=== PATIENT | male | born 1990 ===

== ENCOUNTER 2020-12-08 11:06 | Emergency (ER) | payer SELFPAY ==
[2020-12-08 11:08] VITALS: BP 148/98; PULSE 103; RESP 14; TEMP 37; O2SAT 95
--- NOTE | 2020-12-08 11:16 | W.ED.GENAD ---
Discharge Plan Disposition Patient Disposition: HOME Condition: Stable Discharge Details Clinical Impression: Anxiety Primary Care Provider: [facility] Provider: Jazzy Cárdenas Home Meds and New Rx's Prescriptions: No Action No Known Home Meds RF: 0 Discharge Instructions Instructions: Anxiety (ED) Additional Instructions: Your exam and reevaluation are reassuring here today. If you develop any thoughts of self-harm, harming others or other new/worsening symptoms please seek care urgently once again. Otherwise, please follow-up with primary care when she returns home within the next 1 to 2 weeks. Discharge Data Discharge Date/Time-TO BE ENTERED AT DEPARTURE: 12/08/20 17:20 Medical Decision Making <ED Blandon - Last Filed: 12/09/20 08:21> This is a 30-year-old gentleman, we have no previous medical records, who denies any significant past medical history. Presents via EMS accompanied by [facility] police for evaluation, acting oddly. Patient admits to alcohol use last night and mushrooms roughly 1 week ago. Admits to freaking out earlier today, nearly homeless, having been kicked out of the [place] in. He denies any suicidal or homicidal thoughts. Clinically he is afebrile, no signs of infection or meningitis. No obvious trauma. Will obtain laboratory values for a medical screening examination. Will attempt to obtain any potential collateral information. If able to medically clear will then contact mental health for evaluation. CPSO, behavioral plan, and mental health consultation all ordered. Patient given a nicotine patch. Laboratory values do not reveal any obvious emergent process that would inhibit a mental health evaluation. Tox screen positive for THC, alcohol less than 3. I was able to speak with López from mental health who evaluated the patient, please see his note. He does not feel as though the patient is suicidal, homicidal, needs involuntary placement. Patient does not want to seek a voluntary psychiatric placement. He believes the patient is cleared from a mental health standpoint when considering an emergent process. Patient ate lunch without difficulty. The called the number that he provided for potential collateral information and unfortunately it was a mechanical shop in [place]. The patient has been medically cleared however is homeless, lacks any local resources, and I do not believe that it is in his best interest to be discharged until further information or plan can be set forth. I contacted Ivana from care management who was able to speak with both the patient and his mother. Please see her note. Awaiting further plan. Medical Records Medical records narrative: No previous medical records Lab Data Lab results reviewed: Yes I reviewed the patient's lab results. Lab results narrative: Laboratory Tests Range/Units 12/08/20 12/08/20 12/08/20 11:45 11:45 11:45 WBC (4.4-10.8) 10^3/uL 10.47 RBC (4.36-5.78) 10^6/uL 5.82 H Hgb (13.5-17.5) g/dL 17.9 H Hct (40.0-50.0) % 51.3 H MCV (80-95) fL 88.1 MCH (27.0-33.0) pg 30.8 MCHC (32.0-36.0) % 34.9 RDW (11.8-14.1) % 12.3 Plt Count (130-400) 10^3/uL 299 MPV (8.0-11.0) fL 9.9 Immature Gran % 0.4 Neutrophils % 89.2 Lymphocytes % 5.3 Monocytes % 4.3 Eosinophils % 0.5 Basophils % 0.3 Nucleated RBC % % 0 Absolute Neutrophils (1.2-6.7) 10^3/uL 9.34 H Absolute Lymphocytes (1.2-3.4) 10^3/uL 0.56 L Absolute Monocytes (0.1-0.8) 10^3/uL 0.45 Absolute Eosinophils (0.0-0.7) 10^3/uL 0.05 Absolute Basophils (0.0-0.2) 10^3/uL 0.03 Sodium (136-145) mmol/L 139 Potassium (3.5-5.1) mmol/L 4.0 Chloride (98-107) mmol/L 98 Carbon Dioxide (21.0-32.0) mmol/L 25.2 Anion Gap (3-11) mmol/L 15.8 H BUN (7-18) mg/dL 15 Creatinine (0.70-1.30) mg/dL 1.3 Estimated GFR/1.73 m2 (mL/min/1.73m2) >= 60.00 Glucose (74-106) mg/dL 98 Calcium (8.5-10.1) mg/dL 9.7 Total Bilirubin (0.2-1.0) mg/dL 0.9 AST (15-37) U/L 49 H ALT (16-63) U/L 29 Alkaline Phosphatase (46-116) U/L 101 Total Protein (6.4-8.2) g/dL 10.0 H Albumin (3.4-5.0) g/dL 5.0 TSH (0.36-3.74) uIU/mL 1.04 Salicylates (<2.8) mg/dL < 2.8 Urine Opiates Screen (Negative) Urine Methadone Screen (Negative) Acetaminophen (10-30) ug/mL < 2 Ur Barbiturates Screen (Negative) Ur Tricyclics Screen (Negative) Ur Amphetamines Screen (Negative) U Benzodiazepines Scrn (Negative) Urine Cocaine Screen (Negative) Ur THC Screen (Negative) Ethyl Alcohol (<3) mg/dL < 3.0 COVID-19 Source SARS-CoV-2 (PCR) (Negative) Influenza Type A (PCR) (Negative) Influenza Type B (PCR) (Negative) RSV (PCR) (Negative) Range/Units 12/08/20 12/08/20 11:46 14:26 WBC (4.4-10.8) 10^3/uL RBC (4.36-5.78) 10^6/uL Hgb (13.5-17.5) g/dL Hct (40.0-50.0) % MCV (80-95) fL MCH (27.0-33.0) pg MCHC (32.0-36.0) % RDW (11.8-14.1) % Plt Count (130-400) 10^3/uL MPV (8.0-11.0) fL Immature Gran % Neutrophils % Lymphocytes % Monocytes % Eosinophils % Basophils % Nucleated RBC % % Absolute Neutrophils (1.2-6.7) 10^3/uL Absolute Lymphocytes (1.2-3.4) 10^3/uL Absolute Monocytes (0.1-0.8) 10^3/uL Absolute Eosinophils (0.0-0.7) 10^3/uL Absolute Basophils (0.0-0.2) 10^3/uL Sodium (136-145) mmol/L Potassium (3.5-5.1) mmol/L Chloride (98-107) mmol/L Carbon Dioxide (21.0-32.0) mmol/L Anion Gap (3-11) mmol/L BUN (7-18) mg/dL Creatinine (0.70-1.30) mg/dL Estimated GFR/1.73 m2 (mL/min/1.73m2) Glucose (74-106) mg/dL Calcium (8.5-10.1) mg/dL Total Bilirubin (0.2-1.0) mg/dL AST (15-37) U/L ALT (16-63) U/L Alkaline Phosphatase (46-116) U/L Total Protein (6.4-8.2) g/dL Albumin (3.4-5.0) g/dL TSH (0.36-3.74) uIU/mL Salicylates (<2.8) mg/dL Urine Opiates Screen (Negative) Negative Urine Methadone Screen (Negative) Negative Acetaminophen (10-30) ug/mL Ur Barbiturates Screen (Negative) Negative Ur Tricyclics Screen (Negative) Negative Ur Amphetamines Screen (Negative) Negative U Benzodiazepines Scrn (Negative) Negative Urine Cocaine Screen (Negative) Negative Ur THC Screen (Negative) Positive A Ethyl Alcohol (<3) mg/dL COVID-19 Source Nasopharyx SARS-CoV-2 (PCR) (Negative) Negative Influenza Type A (PCR) (Negative) Negative Influenza Type B (PCR) (Negative) Negative RSV (PCR) (Negative) Negative <ED Rodrigues - Last Filed: 12/08/20 22:39> Care transitioned to myself from López Ramos PA-C with disposition pending. In short, patient was found on the side of the road improperly dressed after being kicked out of his housing. His labs, psychiatric evaluation and exam were reassuring. Paitnet has been found to not be an risk to himself or others. care management has been heavily involved and has been speaking with the patient's mother who lives in [place]. Police had initially been concerned that the patient was expressing pressured speech. However, mother states that his speech pattern is baseline for him. Does sound that they have been means to purchase housing. She is going to discuss disposition with the patient further. Patient again spoke with care management. I also evaluated the patient. He seems quite quite calm with good insight. He is denying any active thoughts of self-harm or harming others. I did not witness any pressured speech or abnormal behaviors. Patient is requesting a cab to be able to take him back to the [facility] where he had been residing that he can gather his belongings and then go to [place] where he will get it herself. Patient states that he has a car in [place] that is currently being worked on and that once this is ready he plans to return back to [place]. At the time of discharge, patient was exhibiting good personal insight with no evidence of being a threat to himself or others. All of the patient's questions and concerns were addressed and he is in agreement with this plan. HPI <ED Blandon - Last Filed: 12/09/20 08:21> General Mode of arrival: EMS. Date/Time Provider Initiated Documentation: 12/08/20 11:16. Limitations to Documentation: altered mental status. Information obtained by: patient, police and EMS. HPI Narrative: This is a 30-year-old male, presenting to the ER for evaluation via EMS but accompanied by state police. The story is that he was found walking outside on the street, [address], not properly dressed. Patient admits to some general anxiety and depression but states who does not have these. He states that his symptoms are not severe enough that he needs to take any medications. Patient relocated here from [place] sometime over the summer. Patient denies any chronic medical concerns. He was staying at the [facility] in; however, tells me he was kicked out yesterday and is now homeless. He tells me he has not slept well lately. He admits to consuming mushrooms, a psychedelic drug, sometime the last week. He admits to alcohol use last night. He states that earlier today on the street he just freaked out. He denies any suicidal or homicidal ideations. He tells me that he has never been hospitalized for any psychiatric reasons. He denies recent illness or trauma. Related Data Home Medications Medication Instructions Recorded Confirmed Unknown [No Known Home Meds] 12/08/20 12/08/20 Allergies Allergy/AdvReac Type Severity Reaction Status Date / Time No Known Allergies Allergy Unverified 12/08/20 11:40 General Stated Complaint: PsychEval GENE: 2 Review of Systems <ED Blandon - Last Filed: 12/09/20 08:21> Constitutional Constitutional: Denies fatigue, Denies fever(s) and Denies headache(s) Eyes Eyes: Denies change in vision ENT Ears, Nose, Mouth, and Throat: Denies headache(s) and Denies neck pain Cardiovascular Cardiovascular: Denies chest pain and Denies dyspnea Respiratory Respiratory: Denies cough and Denies dyspnea Gastrointestinal Gastrointestinal: Denies abdominal pain, Denies nausea and Denies vomiting Genitourinary Genitourinary: Denies dysuria Musculoskeletal Musculoskeletal: Denies neck pain Integumentary/Breasts Skin/Breast: Denies rash Neurologic Neurologic: Denies headache(s) Psychiatric Psychiatric: Reports anxiety, Denies paranoia, Denies homicidal ideation and Denies suicidal ideation Endocrine Endocrine: Denies fatigue PFSH <ED Blandon - Last Filed: 12/09/20 08:21> Social History Smoking/Tobacco Use Status: Current every day Smoking risk assessment performed?: Yes Alcohol Intake: current Alcohol Intake frequency: a few times a week Substance use type: marijuana Details: alcohol last night weed a few days ago likes to be called Gilbert Exam <ED Blandon - Last Filed: 12/09/20 08:21> Const General: cooperative and healthy appearing Orientation: alert, awake, oriented to person, oriented to place and confused (Patient knows it is 2020, unsure of exact date) [facility] Head: normal to inspection, normocephalic and atraumatic Face and sinus: normal facial exam Mouth: moist mucous membranes Throat: posterior oropharynx normal Eyes General: appearance normal, both eyes and all related structures Conjunctivae: conjunctivae normal Sclera: sclerae normal Neck Neck: normal visual inspection, full ROM, no meningeal signs, trachea midline, supple and nontender Resp Effort & Inspection: normal respiratory effort and able to speak in complete sentences Auscultation: clear to auscultation bilaterally Cardio Rate: regular rate Rhythm: regular rhythm GI Palpation: soft and nontender Back/Spine/Pelvis Back: No back tenderness Skin General skin exam: no rashes or lesions noted Neuro General: patient alert, patient awake, moves all extremities and no focal motor deficits Cranial Nerves: CN's II-XI intact bilaterally Cognition: normal cognition Speech: speech normal Gait: normal gait Motor: muscle tone normal throughout Sensory Exam: no sensory deficits noted Extrem General: normal to inspection, full ROM and capillary refill normal Psych Appearance: grossly normal Mental Status: mental status grossly normal Speech and Movement: pressured speech Mood: anxious mood Affect: anxious affect Attitude: cooperative Thought Process: loose association Thought Content: normal, no homicidality and suicidality Insight: limited Judgment: limited Course <ED Blandon - Last Filed: 12/09/20 08:21> Vital Signs Vital signs: Vital Signs Temperature 37 C 12/08/20 11:08 Pulse 103 H 12/08/20 11:08 Respiratory Rate 14 12/08/20 11:08 Blood Pressure 148/98 H 12/08/20 11:08 Pulse Oximetry 95 12/08/20 11:08 Temperature 37 C 12/08/20 11:08 Temperature Source Skin 12/08/20 11:08 Pulse 103 H 12/08/20 11:08 Respiratory Rate 14 12/08/20 11:08 Blood Pressure 148/98 H 12/08/20 11:08 Pulse Oximetry 95 12/08/20 11:08 Oxygen Delivery Method Room Air 12/08/20 11:08 Oxygen Flow Rate 0 12/08/20 11:08 Pain Level 0 12/08/20 11:08 Sign Out <ED Blandon - Last Filed: 12/09/20 08:21> Sign Out Data: Sign Out Comment: Medical screening examination completed as well as mental health evaluation. Patient does not meet involuntary placement, does not wish to seek voluntary placement. At this time we are in the process of obtaining collateral information. Ivana from care management is in contact with both patient and his mother. Awaiting safe disposition. Last updated by López Ramos PA at 12/08/20 16:18
[2020-12-08 11:47] LABS: Abs Immature Grans 0.04 10^3/uL (0.0-0.06); Absolute Basophil Count 0.03 10^3/uL (0.0-0.2); Absolute Eosinophil Count 0.05 10^3/uL (0.0-0.7); Absolute Lymphocyte Count 0.56 10^3/uL (1.2-3.4); Absolute Monocyte Count 0.45 10^3/uL (0.1-0.8); Absolute Neutrophil Count 9.34 10^3/uL (1.2-6.7); Basophils % 0.3; Eosinophils % 0.5; HCT 51.3 % (40.0-50.0); HGB 17.9 g/dL (13.5-17.5); Immature Grans % 0.4; Lymphocytes % 5.3; MCH 30.8 pg (27.0-33.0); MCHC 34.9 % (32.0-36.0); MCV 88.1 fL (80-95); MPV 9.9 fL (8.0-11.0); Monocytes % 4.3; Neutrophils % 89.2; Nucleated RBC 0 %; Platelet Count 299 10^3/uL (130-400); RBC 5.82 10^6/uL (4.36-5.78); RDW 12.3 % (11.8-14.1); RDW-SD 39.8 fL; WBC 10.47 10^3/uL (4.4-10.8)
--- NOTE | 2020-12-08 11:57 | NUR.NOTE ---
unable to obtain IV, provider aware. patient requested noctine patch, provider ordering patch. Nursing Note:
[2020-12-08 12:11] LABS: ALT 29 U/L (16-63); AST 49 U/L (15-37); Alkaline Phosphatase 101 U/L (46-116); Anion Gap 15.8 mmol/L (3-11); BUN 15 mg/dL (7-18); Bilirubin, Total 0.9 mg/dL (0.2-1.0); CO2 25.2 mmol/L (21.0-32.0); CREATININE 1.3 mg/dL (0.70-1.30); Calcium 9.7 mg/dL (8.5-10.1); Chloride 98 mmol/L (98-107); ETHANOL BLOOD < 3.0 mg/dL (<3); Glucose 98 mg/dL (74-106); Sodium 139 mmol/L (136-145); TSH 1.04 uIU/mL (0.36-3.74)
[2020-12-08 12:12] LABS: Acetaminophen < 2 ug/mL (10-30); Salicylate < 2.8 mg/dL (<2.8)
[2020-12-08] MEDS: Nicotine 14 MG/24 HR PATCH TD (12:15)
--- NOTE | 2020-12-08 12:24 | PDOC.CMSAFED ---
- If Service Date Differs Date of service: 12/08/20 Time of Service: 12:24 Care Management Safety Plan Status: Voluntary Chief Complaint: Antonio was reportedly found by police walking [address] in a union suit and socks. According to nursing staff, he was subsequently brought to the ED due to manic behavior. Antonio was assessed by Samson Azevedo, [facility] crisis screener, and was found not to meet criteria for hospitalization. Antonio is discharged. CM will respond to ED to assess patient after patient has been medically cleared and assessed by screener. If screener deems patient meets criteria for psychiatric stabilization CM will facilitate interdepartmental huddle with [facility] screener for safety planning considerations and meet with patient to review [facility] policy and safety plan, establish individual wishes for treatment and maintain patient rights. In the interim; please note safety plan below to guide patient care while awaiting further assessment in the ED. SAFETY PLAN: 1. Will remain on suicide precautions and in paper clothes. 2. Will remain in room under direct supervision of one-on-one staff at all times provided by ANNY, [employer] paper core machine operator. 3. May have paper cups, plates, finger foods as well as a cardboard spoon with which to eat meals. 4. Follow [facility] Management of the Admitted Behavioral Health Patient policy. 5. Comfort bath system only. 6. No personal belongings 7. No visitors. 8. Phone use at nursing discretion. 9. Due to VOLUNTARY status, if patient wishes to leave [facility], staff will contact [facility] Crisis Screener ([phone]) and On-Call Network Intern ([phone]) as soon as possible. In the event of elopement, notify [facility] Police ([phone]). If deemed appropriate for inpatient psychiatric care, safety plan will be established with patient, and care team, to adhere to patient goals, identify restrictions based on behavioral status, address nutrition, and determine allowed personal belongings, tools for hygiene and personal care. As well plan will determine level of activity including ambulation, level of supervision, visitors, and determine privileges based on level of acuity, behaviors and level of engagement by patient.
[2020-12-08 12:34] LABS: COVID-19 PCR Negative (Negative); Influenza A PCR Negative (Negative); Influenza B PCR Negative (Negative); RSV PCR Negative (Negative)
--- NOTE | 2020-12-08 14:06 | NUR.NOTE ---
patient speaking to mother over the phone. Nursing Note:
[2020-12-08 15:01] LABS: *AMPHETAMINES SCREEN URINE Negative (Negative); *BARBITURATES SCREEN URINE Negative (Negative); *BENZODIAZEPINES SCREEN URINE Negative (Negative); Cannabinoids THC POSITIVE (Negative); Cocaine Screen,Urine Negative (Negative); METHADONE URINE SCREEN Negative (Negative); OPIATES URINE SCREEN Negative (Negative); Tricyclic Antidepressants Negative (Negative)
[2020-12-08 16:23] VITALS: BP 133/87; PULSE 93; RESP 17; O2SAT 100
[2020-12-08 16:47] LABS: Bilirubin Small (Negative); Blood Negative (Negative); Clarity Clear (Clear); Glucose Negative (Negative); Ketones 80 mg/dL (Negative); Leukocyte Esterase Negative (Negative); Nitrite Negative (Negative); Specific Gravity >= 1.030 (1.005-1.025); Urobilinogen 0.2 EU/dL (Up TO 0.2); pH 5.5 (5-8)
[2020-12-08 17:03] LABS: Bacteria Negative HPF (Negative); C & S Indicated? No; Casts Negative LPF (Negative); Crystals Negative HPF (Negative); Epithelial Cells Negative HPF (Negative); Mucus Trace (Negative); Other Cells Negative (Negative); RBC Negative HPF (0-2); WBC 0-2 HPF (0-5)
--- NOTE | 2020-12-08 17:27 | PDOC.MHCN_ITS ---
Date of service: 12/08/20 Time of Service: 17:27 Mental Health Crisis Note Presenting Issue How did you arrive at the ED and why did you come: The client is assessed via telehealth at [facility] following medical clearance. Client presented via EMS ([facility]) accompanied by [facility] after being found walking [place] [address] while not wearing season-appropriate attire and speaking 'gibberish'. Precipitating Factors Client presents in standard-issue paper garments. Grooming appears disheveled. Mood reported as tired with animated affect. Thought process is mildly tangential requiring periodic redirection. Speech is clear, coherent, and pressured. Responses to questions are logical but overly elaborate and client appears prone to distractibility. No evidence or report of delusions, hallucinations, or psychotic thought process. The client denies current SI/HI/SIB, intent or plan. He reports that he has not slept in 3 days and states that I have no idea what I was thinking. I got paranoid and I normally don't do that but I flipped. Client becomes agitated when discussing a stressful interaction he had with the [facility] technical services manager. He states that It was something about a noise ordinance. I wanted to do some laundry and the technical services manager banged on the door and said 'get out right now'. The client reports that he drank 3x 'Tallboy' 4.7oz cans of alcohol the preceding night and that he experimented with a hallucinogenic 1 week prior to current assessment. He denies any recent substance use. Disposition BEHAVIOR: Appropriate during all interactions. EYE CONTACT: Mixed MOOD: Tired AFFECT: Animated APPETITE: Poor SLEEP(trouble falling/staying asleep: Dysregulated - Client c/o insomina (3 days) Plan The client has declined intake and services through [facility] at this time. At time of interaction the client did not present as an imminent danger to himself or others as he was able to answer most questions and did not endorse SI/HI/SIB. He reports that he does not know the location of his phone and that the rest of his property is at the [facility]. He has declined the need for outreach contact. It has been recommended that client be discharged following clearance of medical disposition and that he be provided the contact number for [facility] in the event he is not allowed back to the hotel. Signature Clinician's Name/Title: Samson Azevedo [facility] Clinician / HP
== END 2020-12-08 17:20 | disposition home or self-care (01) ==
PROVIDERS: Physician Assistant; Emergency Provider Physician Assistant
DX: F41.8 Other specified anxiety disorders (principal); Z59.0 Homelessness; Z03.818 Encounter for observation for suspected exposure to other biological agents ruled out
CPT/HCPCS: 36415; 80053; 80307; 99285; 80320; 80329; 81003; 81015; 84443; 85025; 99283